=== PATIENT | female | born 1990 | race American Indian/Alaskan Native ===

== ENCOUNTER 2021-09-23 16:32 | Emergency (ER) | payer OTHER ==
[2021-09-23] MEDS ORDERED: SODIUM CHLORIDE 0.9% 1000 ML 1,000 ML IV ONE (17:52)
[2021-09-23] MEDS ORDERED: ONDANSETRON 4 MG/2 ML INJ IV ONE (17:52)
--- NOTE | 2021-09-23 17:55 | Emergency Department Report ---
<SADIAREJIRylee - Last Filed: 09/23/21 20:33> ED General Adult HPI - General Chief complaint: Syncope Stated complaint: VOMITING Time Seen by Provider: 09/23/21 17:48 Source: patient Mode of arrival: Ambulatory Limitations: No Limitations - History of Present Illness Initial comments: Patient is 31 years old female with no significant past medical history. Patient presented to the ER complaining of nausea, vomiting and watery diarrhea for the last 7 days. Patient denied any fever or chills. She denied any hematemesis, hematochezia or melena. Patient denied any vaginal discharge or urinary symptoms. -: days(s) (7) Improves with: none - Related Data Allergies Allergy/AdvReac Type Severity Reaction Status Date / Time No Known Allergies Allergy Verified 09/23/21 16:44 ED Review of Systems Comment: All other systems reviewed and negative Constitutional: denies: chills, fever Respiratory: denies: cough, shortness of breath, SOB with exertion, SOB at rest Cardiovascular: denies: chest pain, palpitations Gastrointestinal: nausea, vomiting, diarrhea. denies: abdominal pain Musculoskeletal: denies: back pain Neurological: weakness (Generalized). denies: headache, numbness, paresthesias, confusion, abnormal gait Psychiatric: denies: homicidal thoughts, suicidal thoughts ED Physical Exam - General Limitations: No Limitations General appearance: alert, in no apparent distress - Head Head exam: Present: atraumatic, normocephalic, normal inspection - ENT ENT exam: Present: mucous membranes dry - Neck Neck exam: Present: normal inspection, full ROM. Absent: tenderness, meningismus - Respiratory Respiratory exam: Present: normal lung sounds bilaterally - Cardiovascular Cardiovascular Exam: Present: regular rate, normal rhythm, normal heart sounds - GI/Abdominal GI/Abdominal exam: Present: soft, normal bowel sounds. Absent: distended, tenderness, guarding, rebound, rigid, organomegaly, mass, bruit, pulsatile mass, hernia - Extremities Exam Extremities exam: Present: normal inspection, full ROM, normal capillary refill. Absent: tenderness, pedal edema, joint swelling, calf tenderness - Back Exam Back exam: Present: normal inspection, full ROM. Absent: CVA tenderness (R), CVA tenderness (L) - Neurological Exam Neurological exam: Present: alert, oriented X3, CN II-XII intact, normal gait, reflexes normal. Absent: motor sensory deficit - Psychiatric Psychiatric exam: Present: normal mood - Skin Skin exam: Present: warm, intact, normal color ED Medical Decision Making - Lab Data Result diagrams: 09/23/21 17:59 09/23/21 17:59 - Radiology Data Radiology results: report reviewed - Medical Decision Making Patient is 31 years old female with no significant past medical history. Patient presented to the ER complaining of nausea, vomiting and watery diarrhea for the last 7 days. Patient denied any fever or chills. She denied any hematemesis, hematochezia or melena. Patient denied any vaginal discharge or urinary symptoms. Patient received morphine and Zofran. Patient also received normal saline. Patient labs reviewed and showed elevated liver enzyme AST of 400 and ALT of 167 indicating this is most likely alcoholic hepatitis. Alcohol level came back as 0.30. Patient counseled about alcohol abuse. ED Disposition Clinical Impression: Hepatomegaly Alcoholic hepatitis Qualifiers: Ascites presence: unspecified Qualified Code(s): K70.10 - Alcoholic hepatitis without ascites Gastritis Qualifiers: Gastritis type: alcoholic Chronicity: unspecified Gastritis bleeding: presence of bleeding unspecified Qualified Code(s): K29.20 - Alcoholic gastritis without bleeding Disposition: 01 HOME / SELF CARE / HOMELESS Condition: Stable Instructions: Abdominal Pain, Adult, Nausea and Vomiting, Adult, [id number], Alcoholic Hepatitis, Gastritis, Adult, [id number] Additional Instructions: Cut back or quit alcohol abuse for general head Increase your daily fluid to help your hydration Avoid heavy meal or fatty male as it could worsen your symptoms Call and schedule a follow with your doctor in the next 3-5 days for progress Please do not hesitate to call or return to emergency room if your symptoms worsen Prescriptions: Famotidine [Pepcid] 40 mg PO QHS #14 tablet Ondansetron [Zofran Odt] 4 mg PO Q8HR PRN #14 tab.rapdis PRN Reason: Nausea And Vomiting Referrals: PRIMARY CARE, [Primary Care Provider] - 3-5 Days RUBEN VÁZQUEZ MD [Staff Physician] - 3-5 Days <MARTIR WHITMAN - Last Filed: 09/23/21 22:25> ED Review of Systems ROS: Stated complaint: VOMITING Other details as noted in HPI ED Course Vital Signs 09/23/21 09/23/2109/23/22 17:52 18:15 21:03 Pulse Rate 122 H 101 H 87 Respiratory 18 18 18 Rate Blood Pressure 174/112 120/85 125/97 [Left] O2 Sat by Pulse 99 99 99 Oximetry - Reevaluation(s) Reevaluation #1: 09/23/21 22:19 Pt signed out to me while waiting for CT abd/pel -- noted with FINDINGS: LOWER CHEST: No significant abnormality. LIVER: Enlarged and diffusely hypodense characteristic of fatty infiltration. Hyperdense area in the right lobe represent either focal fatty sparing or flash fill cavernous hemangioma. GALLBLADDER: No significant abnormality. BILE DUCTS: No significant abnormality. PANCREAS: No significant abnormality. SPLEEN: No significant abnormality. ADRENALS: No significant abnormality. RIGHT KIDNEY / URETER: No significant abnormality. LEFT KIDNEY / URETER: No significant abnormality. STOMACH / SMALL BOWEL: No significant abnormality. COLON: No significant abnormality. APPENDIX: No significant abnormality. PERITONEUM: No free fluid. No free air. No fluid collection. LYMPH NODES: No significant adenopathy. AORTA / ARTERIES: No significant abnormality. IVC / VEINS: No significant abnormality. URINARY BLADDER: No significant abnormality. REPRODUCTIVE ORGANS: No significant abnormality. ADDITIONAL FINDINGS: None. SKELETAL SYSTEM: No significant abnormality. IMPRESSION: 1. No inflammatory process or bowel obstruction. 2. Hepatomegaly with hepatic steatosis. The above support the notion about the transaminitis as a result of likely eth anol abuse with current 0.30 level--we will proceed in discharging patient with warnings to call back or afford alcohol abuse and after hydration. ED Medical Decision Making - Lab Data Result diagrams: 09/23/21 17:59 09/23/21 17:59 Critical care attestation.: If time is entered above; I have spent that time in minutes in the direct care of this critically ill patient, excluding procedure time. ED Disposition Is pt being admited?: No Does the pt Need Aspirin: No Time of Disposition: 22:23
[2021-09-23 18:38] LABS: Basophils % (Auto) 0.3 % (0.0-1.8); Eosinophils % (Auto) 0.4 % (0.0-4.3); Hematocrit 39.6 % (30.3-42.9); Hemoglobin 13.3 gm/dl (10.1-14.3); Lymphocytes # (Auto) 1.5 K/mm3 (1.2-5.4); Lymphocytes % (Auto) 45.2 % (13.4-35.0); Mean Corpuscular HGB Conc 33 % (30-34); Mean Corpuscular Volume 106 fl (79-97); Monocytes # (Auto) 0.4 K/mm3 (0.0-0.8); Monocytes % (Auto) 12.6 % (0.0-7.3); Platelet Count 191 K/mm3 (140-440); Red Blood Count 3.75 M/mm3 (3.65-5.03)
[2021-09-23 18:44] LABS: Red Cell Distribution Width 21.5 % (13.2-15.2)
[2021-09-23 18:48] LABS: Alanine Aminotransferase 167 units/L (7-56); Albumin 3.5 g/dL (3.9-5); Bilirubin,Direct 0.4 mg/dL (0-0.2); Blood Urea Nitrogen 6 mg/dL (7-17); Calcium 8.6 mg/dL (8.4-10.2); Hemolysis Index 6
[2021-09-23 19:02] LABS: Bilirubin,Urine NEG (Negative); Blood,Urine NEG (Negative); Color,Urine Yellow (Yellow); Protein,Urine <15 mg/dL mg/dL (Negative); RBC,Urine < 1.0 /HPF (0.0-6.0); Urobilinogen,Urine < 2.0 mg/dL (<2.0); WBC,Urine < 1.0 /HPF (0.0-6.0)
[2021-09-23 19:04] LABS: BUN/Creatinine Ratio 10
[2021-09-23] MEDS ORDERED: MORPHINE 4 MG/1 ML INJ IV ONE (19:47)
--- NOTE | 2021-09-23 21:21 | Cat Scan Report ---
CT ABDOMEN AND PELVIS WITH CONTRAST INDICATION / CLINICAL INFORMATION: abdominal pain. TECHNIQUE: Axial CT images were obtained through the abdomen and pelvis after 100 mL Omnipaque [address] scans at this location are performed using CT dose reduction for ALARA by means of automated exposure control. COMPARISON: None available. FINDINGS: LOWER CHEST: No significant abnormality. LIVER: Enlarged and diffusely hypodense characteristic of fatty infiltration. Hyperdense area in the right lobe represent either focal fatty sparing or flash fill cavernous hemangioma. GALLBLADDER: No significant abnormality. BILE DUCTS: No significant abnormality. PANCREAS: No significant abnormality. SPLEEN: No significant abnormality. ADRENALS: No significant abnormality. RIGHT KIDNEY / URETER: No significant abnormality. LEFT KIDNEY / URETER: No significant abnormality. STOMACH / SMALL BOWEL: No significant abnormality. COLON: No significant abnormality. APPENDIX: No significant abnormality. PERITONEUM: No free fluid. No free air. No fluid collection. LYMPH NODES: No significant adenopathy. AORTA / ARTERIES: No significant abnormality. IVC / VEINS: No significant abnormality. URINARY BLADDER: No significant abnormality. REPRODUCTIVE ORGANS: No significant abnormality. ADDITIONAL FINDINGS: None. SKELETAL SYSTEM: No significant abnormality. IMPRESSION: 1. No inflammatory process or bowel obstruction. 2. Hepatomegaly with hepatic steatosis. Signer Name: Jaden Molina MD Signed: 09/23/2021 9:16 PM Workstation Name: [id number]
[2021-09-23 22:45] VITALS: BP 123/69
== END 2021-09-23 22:43 | disposition home or self-care (01) ==
LOC: ED 16:32
DX: K29.70 Gastritis, unspecified, without bleeding (principal); K70.10 Alcoholic hepatitis without ascites
CPT/HCPCS: 36415; 74177; 80048; 80076; 81001; 83690; 84703; 85025; 96361; 96374; 96375; 99284; J2270; J2405; J7030; Q9967; 80320; G0480

== ENCOUNTER 2021-09-25 19:22 | Emergency (ER) | payer OTHER ==
[2021-09-25 21:56] LABS: Basophils % (Auto) 0.4 % (0.0-1.8); Eosinophils % (Auto) 0.2 % (0.0-4.3); Hematocrit 38.5 % (30.3-42.9); Lymphocytes # (Auto) 1.1 K/mm3 (1.2-5.4); Lymphocytes % (Auto) 29.4 % (13.4-35.0); Mean Corpuscular HGB Conc 34 % (30-34); Mean Corpuscular Volume 106 fl (79-97); Monocytes # (Auto) 0.5 K/mm3 (0.0-0.8); Monocytes % (Auto) 13.3 % (0.0-7.3); Platelet Count 211 K/mm3 (140-440); Red Blood Count 3.64 M/mm3 (3.65-5.03); Red Cell Distribution Width 19.9 % (13.2-15.2)
[2021-09-25 22:12] LABS: Alanine Aminotransferase 149 units/L (7-56); Albumin 3.7 g/dL (3.9-5); Blood Urea Nitrogen 4 mg/dL (7-17); Calcium 8.5 mg/dL (8.4-10.2); Hemolysis Index 6
[2021-09-25 22:16] LABS: BUN/Creatinine Ratio 8
[2021-09-26 00:25] LABS: Mucus,Urine FEW /HPF
[2021-09-26 00:31] LABS: Bilirubin,Urine Negative (Negative); Blood,Urine Negative (Negative); Color,Urine Straw (Yellow); PH,Urine 7.5 (5.0-7.0); Protein,Urine <15 mg/dL mg/dL (Negative)
[2021-09-26] MEDS ORDERED: ONDANSETRON 4 MG/2 ML INJ IV ONE (14:25)
[2021-09-26] MEDS ORDERED: SODIUM CHLORIDE 0.9% 1000 ML 1,000 ML IV ONE (14:25)
--- NOTE | 2021-09-26 14:30 | Emergency Department Report ---
Vomiting/Diarrhea - HPI Chief Complaint: Nausea/Vomiting/Diarrhea Stated Complaint: EMESIS/ABD PAIN Time Seen by Provider: 09/26/21 14:17 Duration: 7-10 days Severity: moderate Nausea/Vomiting Severity: Moderate Diarrhea Severity: Mild Pain Location: Generalized Pain Severity: Mild Symptoms: Yes Watery Diarrhea, Yes Able to Tolerate Fluids, No Bloody diarrhea, No Fever, No Recent Unusual Foods, No Recent Untreated Water, No Recent use of Antibiotics, No Family w/ Similar Symptoms, No Contacts w/ Similar Symptoms, No Rash, No Hematuria, No Recent URI Symptoms Other History: This is a 31-year-old -[place] female who presents to the emergency room with diffuse abdominal pain, vomiting, and diarrhea for 7 to 10 days. Patient states she was seen in the emergency room for similar symptoms on Thursday but have not improved. Patient states diarrhea has slowed down. She cannot keep anything on her stomach. Denies fever, chills, hematochezia, hematemesis, chest pain ED Review of Systems ROS: Stated complaint: EMESIS/ABD PAIN Other details as noted in HPI Constitutional: denies: chills, fever Respiratory: no symptoms reported Cardiovascular: denies: chest pain, palpitations Gastrointestinal: abdominal pain, nausea, vomiting, diarrhea. denies: hematemesis, hematochezia Genitourinary: denies: urgency, dysuria, discharge Skin: denies: rash, lesions Neurological: denies: headache, weakness, paresthesias Psychiatric: denies: anxiety, depression ED Past Medical Hx - Medications Home Medications: Home Medications Medication Instructions Recorded Confirmed Last Taken Type Famotidine [Pepcid] 40 mg PO QHS #14 tablet 09/23/21 Unknown Rx Ondansetron [Zofran Odt] 4 mg PO Q8HR PRN #14 tab.rapdis 09/23/21 Unknown Rx Vomiting Diarrhea Exam - Exam General: Vital signs noted. No distress. Alert and acting appropriately. HEENT: Yes Moist Mucous Membranes, No Pharyngeal Erythema, No Pharyngeal Exudates, No Rhinorrhea, No Conjuctival Injection, No Frontal Tenderness, No Maxillary Tenderness Neck: No Adenopathy, No Rigidity Lungs: Yes Clear Lung Sounds, Yes Good Air Exchange, No Wheezes, No Stridor, No Cough, No Nasal Flaring, No Retractions, No Use of Accessory Muscles Heart exam: Regular: Yes, Murmur: No, Tachycardia: No Abdomen: Tenderness: Yes (Suprapubic), Peritoneal Signs: No, Distention: No, Hyperactive Bowel sounds: No Skin exam: Rash: No, Edema: No, Normal turgor: Yes Neurologic: Alert and oriented, no deficits. Musculoskeletal: Unremarkable. ED Course Vital Signs 09/25/21 21:00 Temperature 99.7 F H Pulse Rate 84 Respiratory 18 Rate Blood Pressure 124/86 O2 Sat by Pulse 97 Oximetry ED Medical Decision Making - Lab Data Result diagrams: 09/25/21 21:33 09/25/21 21:33 Lab Results 09/25/21 09/25/21 09/25/21 Range/Units 21:33 21:33 21:33 WBC 3.7 L (4.5-11.0) K/mm3 RBC 3.64 L (3.65-5.03) M/mm3 Hgb 13.0 (10.1-14.3) gm/dl Hct 38.5 (30.3-42.9) % MCV 106 H (79-97) fl MCH 36 H (28-32) pg MCHC 34 (30-34) % RDW 19.9 H (13.2-15.2) % Plt Count 211 (140-440) K/mm3 Lymph % (Auto) 29.4 (13.4-35.0) % [place] % (Auto) 13.3 H (0.0-7.3) % Eos % (Auto) 0.2 (0.0-4.3) % Baso % (Auto) 0.4 (0.0-1.8) % Lymph # (Auto) 1.1 L (1.2-5.4) K/mm3 [place] # (Auto) 0.5 (0.0-0.8) K/mm3 Eos # (Auto) 0.0 (0.0-0.4) K/mm3 Baso # (Auto) 0.0 (0.0-0.1) K/mm3 Seg Neutrophils % 56.7 (40.0-70.0) % Seg Neutrophils # 2.1 (1.8-7.7) K/mm3 Sodium 141 D (137-145) mmol/L Potassium 3.9 (3.6-5.0) mmol/L Chloride 99.3 (98-107) mmol/L Carbon Dioxide 28 (22-30) mmol/L Anion Gap 18 mmol/L BUN 4 L (7-17) mg/dL Creatinine 0.5 L (0.6-1.2) mg/dL Estimated GFR > 60 ml/min BUN/Creatinine Ratio 8 % Glucose 82 (65-100) mg/dL Calcium 8.5 (8.4-10.2) mg/dL Total Bilirubin 1.30 H (0.1-1.2) mg/dL AST 366 H (5-40) units/L ALT 149 H (7-56) units/L Alkaline Phosphatase 305 H (35-129) units/L Total Protein 6.5 (6.3-8.2) g/dL Albumin 3.7 L (3.9-5) g/dL Albumin/Globulin Ratio 1.3 % HCG, Qual Negative (Negative) Urine Color (Yellow) Urine Turbidity (Clear) Urine pH (5.0-7.0) Ur Specific [place] (1.003-1.030) Urine Protein (Negative) mg/dL Urine Glucose (UA) (Negative) mg/dL Urine Ketones (Negative) mg/dL Urine Blood (Negative) Urine Nitrite (Negative) Ur Reducing Substances Urine Bilirubin (Negative) Urine Ictotest Urine Urobilinogen (<2.0) mg/dL Ur Leukocyte Esterase (Negative) Urine WBC (Auto) (0.0-6.0) /HPF Urine RBC (Auto) (0.0-6.0) /HPF U Epithel Cells (Auto) (0-13.0) /HPF Urine Mucus /HPF 09/25/21 Range/Units Unknown WBC (4.5-11.0) K/mm3 RBC (3.65-5.03) M/mm3 Hgb (10.1-14.3) gm/dl Hct (30.3-42.9) % MCV (79-97) fl MCH (28-32) pg MCHC (30-34) % RDW (13.2-15.2) % Plt Count (140-440) K/mm3 Lymph % (Auto) (13.4-35.0) % [place] % (Auto) (0.0-7.3) % Eos % (Auto) (0.0-4.3) % Baso % (Auto) (0.0-1.8) % Lymph # (Auto) (1.2-5.4) K/mm3 [place] # (Auto) (0.0-0.8) K/mm3 Eos # (Auto) (0.0-0.4) K/mm3 Baso # (Auto) (0.0-0.1) K/mm3 Seg Neutrophils % (40.0-70.0) % Seg Neutrophils # (1.8-7.7) K/mm3 Sodium (137-145) mmol/L Potassium (3.6-5.0) mmol/L Chloride (98-107) mmol/L Carbon Dioxide (22-30) mmol/L Anion Gap mmol/L BUN (7-17) mg/dL Creatinine (0.6-1.2) mg/dL Estimated GFR ml/min BUN/Creatinine Ratio % Glucose (65-100) mg/dL Calcium (8.4-10.2) mg/dL Total Bilirubin (0.1-1.2) mg/dL AST (5-40) units/L ALT (7-56) units/L Alkaline Phosphatase (35-129) units/L Total Protein (6.3-8.2) g/dL Albumin (3.9-5) g/dL Albumin/Globulin Ratio % HCG, Qual (Negative) Urine Color Straw (Yellow) Urine Turbidity Clear (Clear) Urine pH 7.5 H (5.0-7.0) Ur Specific [place] 1.005 (1.003-1.030) Urine Protein <15 mg/dl (Negative) mg/dL Urine Glucose (UA) Negative (Negative) mg/dL Urine Ketones Negative (Negative) mg/dL Urine Blood Negative (Negative) Urine Nitrite Negative (Negative) Ur Reducing Substances Not Reportable Urine Bilirubin Negative (Negative) Urine Ictotest Not Reportable Urine Urobilinogen 2.0 (<2.0) mg/dL Ur Leukocyte Esterase Negative (Negative) Urine WBC (Auto) 3.0 (0.0-6.0) /HPF Urine RBC (Auto) 1.0 (0.0-6.0) /HPF U Epithel Cells (Auto) 16.0 H (0-13.0) /HPF Urine Mucus Few /HPF - Medical Decision Making This is a 31 y.o. female that presents with nausea, vomiting, diarrhea, abdominal cramping for 7 to 10 days. Patient is stable and was examined by me. Vitals stable. Obtained CMP, CBC, & UA. Labs reviewed with elevated liver enzymes. Liver enzymes slightly improved from [address] from 3 days ago with confirmation of hepatomegaly. Mild suprapubic tenderness on exam. Given zofran and normal saline 1 L bolus IV. Instructed to start using prescribed Pepcid and Zofran. Discussed plan with patient and agreed to plan. No further questions noted by the patient. Discharged home in stable condition. Follow up with PCP in 2-3 days. Critical care attestation.: If time is entered above; I have spent that time in minutes in the direct care of this critically ill patient, excluding procedure time. ED Disposition Clinical Impression: Acute nausea with nonbilious vomiting, Acute abdominal pain Gastritis Qualifiers: Gastritis type: unspecified gastritis Chronicity: acute Gastritis bleeding: without bleeding Qualified Code(s): K29.00 - Acute gastritis without bleeding Disposition: 01 HOME / SELF CARE / HOMELESS Is pt being admited?: No Condition: Stable Instructions: Gastritis, Adult, [id number], Nausea and Vomiting, Adult Referrals: ALEKSANDRA MAHMOOD MD [Staff Physician] - 3-5 Days [facility] [Provider Group] - 3-5 Days Forms: Work/School Release Form(ED)
[2021-09-26] MEDS ORDERED: ONDANSETRON 4 MG/2 ML INJ ONE (16:49)
[2021-09-26 17:52] VITALS: BP 149/83
== END 2021-09-26 17:44 | disposition home or self-care (01) ==
LOC: ED 19:22
DX: K29.00 Acute gastritis without bleeding (principal); R11.2 Nausea with vomiting, unspecified; R10.9 Unspecified abdominal pain
CPT/HCPCS: 36415; 80053; 81001; 84703; 85025; 96361; 96374; 99283; J2405; J7030